=== PATIENT | female | born 1985 | race Two or more races ===

== ENCOUNTER → 2025-01-08 | Outpatient (CLI) | payer BC, SELFPAY ==
--- NOTE | 2025-01-08 07:30 | XR_ITS ---
Examination: Breast ultrasound complete, bilateral Date and time of exam: January 08, 2025 0737 hours INDICATIONS: Palpable lump outer right breast note is beginning several months ago Technique: Real-time grayscale ultrasonographic imaging bilateral breasts, including all 4 quadrants as well as nipple retroareolar and axillary regions. Findings: Sonographic images right breast Benign cysts, the largest in the 8:00 position 14 x 13 mm No solid nodules Sonographic images left breast Multiple benign cysts, the largest in the 4:00 position 15 x 16 mm No solid nodules IMPRESSION: BI-RADS Category 2: Benign findings
--- NOTE | 2025-01-08 08:45 | XR_ITS ---
Examination: Screening digital mammography, bilateral Computer aided detection 3-D breast Tomosynthesis, bilateral Date and time of exam: January 08, 2025 0803 hours COMPARISON: None Indication: Screening Technique: Nonmagnified MLO, CC views of the breasts to been obtained, reconstructed from 3-D Tomosynthesis images. R2 computer aided detection program utilized for evaluation of suspicious masses and/or abnormal calcifications. 3-D Tomosynthesis images obtained. Findings: The breasts are heterogeneously dense, which may obscure small masses Benign calcifications 10 mm round mass upper inner right breast, partially indistinct margins 8mm round mass nipple level left breast Impression: BI-RADS Category 0: Incomplete: Need additional imaging evaluation 10 mm round mass upper inner right breast, recommend follow-up spot tomographic views of this mass. 8mm round mass nipple level left breast, recommend follow-up spot tomographic views
== END | disposition home or self-care (01) ==
PROVIDERS: PCP Family Medicine; Referring Provider Specialist; Visit Provider Specialist
DX: Z12.31 Encounter for screening mammogram for malignant neoplasm of breast (principal); N63.12 Unspecified lump in the right breast, upper inner quadrant; N63.10 Unspecified lump in the right breast, unspecified quadrant
CPT/HCPCS: 76641; 77063; 77067

== ENCOUNTER → 2025-01-22 | Outpatient (CLI) | payer BC, SELFPAY ==
--- NOTE | 2025-01-22 | XR_ITS ---
Examination: Diagnostic digital mammography, bilateral Computer aided detection 3-D breast Tomosynthesis, bilateral Date and time of exam: 01/22/2025, 8:57 AM Comparisons: 01/08/2025 Indications:Further evaluation of bilateral abnormality seen on screening exam. Technique: Nonmagnified MLO, CC views of the breasts to been obtained, reconstructed from 3-D Tomosynthesis images. R2 computer aided detection program utilized for evaluation of suspicious masses and/or abnormal calcifications. 3-D Tomosynthesis images obtained. Findings: The breasts are heterogeneously dense, which may obscure small masses. Multiple benign-appearing oval circumscribed masses seen bilaterally. No evidence of suspicious masses or suspicious calcifications. Impression: BI-RADS category 2: Benign findings Recommend 1 year follow-up mammogram
== END | disposition home or self-care (01) ==
LOC: CDIM 08:42
PROVIDERS: PCP Family Medicine; Referring Provider Specialist; Visit Provider Specialist
DX: R92.323 Mammographic fibroglandular density, bilateral breasts (principal)
CPT/HCPCS: 77062; 77066; G0279

== ENCOUNTER 2025-03-26 16:40 | Emergency (ER) | payer OTHER, SELFPAY ==
[2025-03-26 16:41] VITALS: BMI 29.2
[2025-03-26 16:52] VITALS: BP 160/92; PULSE 106; RESP 18; TEMP 37.2; O2SAT 99
--- NOTE | 2025-03-26 17:15 | EDNOTE_ITS ---
Upper Extremity Injury RME/HPI General Chief Complaint: Extremity Injury, Upper Stated Complaint: SENT BY WORK TO GET MRI OF LEFT ELBOW Time Seen by Provider: 03/26/25 16:47 Arrival date/time: 03/26/25 16:40 This is a 39 spencer old female that comes to the emergency room with complaints of injury to left anterior Related Data Home Medications ?Medication ?Instructions ?Recorded ?Confirmed lorazepam 1 mg tablet 1 mg PO BID PRN Anxiety 09/2807/14/20 cetirizine 10 mg tablet (Allergy 10 mg PO QDAY 0 07/14/20 Relief (cetirizine)) estradiol-dienogest 3 mg/2 mg-2 1 tab PO QDAY 07/14/20 07/14/20 mg/2 mg-3 mg/1 mg tablet (N[place]zia) sodium chloride 0.65 % nasal spray 1 spray intranasal DAILY 07/14/20 07/14/20 aerosol (Nasal [place] (sodium chloride)) Previous Rx's ?Medication ?Instructions ?Recorded cyclobenzaprine 10 mg tablet 10 mg PO BID #20 tabs Allergies Allergy/AdvReac Type Severity Reaction Status Date / Time amoxicillin (From Augmentin) Allergy Verified 03/26/25 16:44 clavulanic acid (From Allergy Verified 03/26/25 16:44 Augmentin) levofloxacin (From Levaquin) Allergy Verified 03/26/25 16:44 Course Orders Category Date Time Status CYCLObenzaPRINE [Flexeril] Med 03/26/25 17:14 Discontinued 10 mg PO X1 ONE Ibuprofen Tab [Motrin Tab] Med 03/26/25 17:14 Discontinued 800 mg PO X1 ONE Vital Signs Vital signs: Vital Signs Temperature 98.9 F 03/26/25 16:52 Pulse Rate 106 H 03/26/25 16:52 Respiratory Rate 18 03/26/25 16:52 Blood Pressure 160/92 H 03/26/25 16:52 Pulse Oximetry (%) 99 03/26/25 16:52 Oxygen Delivery Method Room Air 03/26/25 16:52 Extremity Injury Medications / Prescriptions Medication administrations:: Medication Administration History Discontinued Medications Cyclobenzaprine HCl (Cyclobenzaprine 5 Mg Tablet) 10 mg PO X1 ONE Stop: 03/26/25 17:15 Last Admin: 03/26/25 18:09 Dose: 10 mg Documented By: RODRIGO Ibuprofen (Ibuprofen Tab 400 Mg Tablet) 800 mg PO X1 ONE Stop: 03/26/25 17:15 Last Admin: 03/26/25 18:09 Dose: 800 mg Documented By: RODRIGO Discharge Plan Plan Patient Disposition: HOME (Self Care) Patient condition on transfer: Stable Prescriptions/Referrals Prescriptions/Med Rec: New cyclobenzaprine 10 mg tablet 10 mg PO BID Qty: 20 0RF No Action lorazepam 1 mg Tablet 1 mg PO BID PRN (Reason: Anxiety) cetirizine [Allergy Relief (cetirizine)] 10 mg Tablet 10 mg PO QDAY sodium chloride [Nasal [place] (sodium chloride)] 0.65 % Aerosol,[place] 1 spray INTRANASAL DAILY [place]zia 3 mg/2 mg-2 mg/ 2 mg-3 mg/1 mg Tablet 1 tab PO QDAY Referrals: Eddie Shore DO [Primary Care Provider] - In 1 week Problem List Clinical Impression: Contusion of arm, left Patient/Caregiver Discharge Instructions Discharge Activity: activity as tolerated Education Materials: ED Contusion, Upper Extremity Additional Instructions: Please follow-up with Worker's Comp. doctor. Come back to the emergency room if symptoms change or worsen. Follow-up with primary provider 1 to 2 days. Print Language: British Stand Alone Forms: Shannon Award Info., Patient Portal Info Letter, Work/School Release PA/PRESIDENT ERGONOMIC CONSULTING Supervising Physician PA/PRESIDENT [employer]GONOMIC CONSULTING Supervising Physician: heladio
[2025-03-26] MEDS: CYCLObenzaPRINE 5 MG TABLET 10 MG PO (18:09)
[2025-03-26] MEDS: IBUPROFEN TAB 400 MG TABLET 800 MG PO (18:09)
== END 2025-03-26 19:33 | disposition home or self-care (01) ==
PROVIDERS: Emergency Provider Emergency Medicine; PCP Family Medicine
DX: S40.022A Contusion of left upper arm, initial encounter (principal); X58.XXXA Exposure to other specified factors, initial encounter
CPT/HCPCS: 99282; A9270

== ENCOUNTER → 2025-03-28 | Outpatient (CLI) | payer BC, SELFPAY | END | disposition home or self-care (01) | PROVIDERS: Referring Provider Specialist; Visit Provider Specialist | DX: B37.89 Other sites of candidiasis (principal); A59.01 Trichomonal vulvovaginitis; N76.0 Acute vaginitis | CPT/HCPCS: 81514 ==

== ENCOUNTER 2025-10-25 05:03 | Emergency (ER) | payer BC, SELFPAY ==
[2025-10-25] VITALS (7 sets, daily range): BP systolic 124–154; BP diastolic 81–101; PULSE 86–151; RESP 12–19; TEMP 36.9–37; O2SAT 97–100; BMI 30.6
--- NOTE | 2025-10-25 05:12 | EKG_ITS ---
[facility] Test Date: 2025-10-25 Pat Name: EZ OROURKE Department: Room: - Gender: Female [employer] Operator: : 1985 Requested By: ED Temporary Provider Order Number: [id number] Reading MD: ED Temporary Provider Measurements Intervals [place] Rate: 148 P: 50 ME: 123 QRS: 24 QRSD: 83 T: 38 QT: 296 QTc: 465 Interpretive Statements SINUS TACHYCARDIA, POSSIBLE ATRIAL FLUTTER MODERATE ST DEPRESSION [0.05+ mV ST DEPRESSION] No previous ECG available for comparison /[id number]/S0/[id number].pdf
--- NOTE | 2025-10-25 05:39 | PD.EDRME ---
Rapid Medical Screening Exam [facility] Arrival date/time: 10/25/25 05:03 40F with history of anxiety presents to ED with heart palps, dizziness, and N/V. Patient states also some L eye blurriness that patient has had for a while. It got worse in the last few days. Patient started metoprolol, buspirone, and vitamin D around the time these symptoms started. Chief Complaint: General Adult/Misc Complain Vital signs: Vital Signs Temperature 98.4 F 10/25/25 05:23 Pulse Rate 151 H 10/25/25 05:23 Respiratory Rate 19 10/25/25 05:23 Blood Pressure 152/93 H 10/25/25 05:23 Pulse Oximetry (%) 97 10/25/25 05:23 Oxygen Delivery Method Room Air 10/25/25 05:23 Exam: Mildly anxious. Normal pupil response and EOM. CN II-XII grossly intact. Neg pronator drift test. Speech normal. Normal WOB. Clear lungs. Fast HR. Clinical Impression: anxiety vs heart arrhythmia vs electrolyate abnormality vs thyroid dysfunction vs brain tumor vs psych/drug vs med side effect vs PE
--- NOTE | 2025-10-25 05:42 | XR_ITS ---
EXAMINATION: AP chest single view TECHNIQUE: AP portable upright chest single view Date and time: October 25, 2025, 0621 hours, comparison April 22, 2019 INDICATION: Shortness of breath cardiac palpitations beginning 12 hours ago. FINDINGS: Normal heart size Lungs are clear Osseous structures are intact IMPRESSION: No active disease
--- NOTE | 2025-10-25 05:43 | XR_ITS ---
Examination: CT brain head without contrast. 2-D sagittal coronal reconstructions Date and time of exam: October 25, 2025, 0613 hours INDICATIONS: Dizziness nausea blurred vision left eye beginning 5 hours ago CTDI: vol (mGy): 49.3 DLP: (mGycm): 923 Technique: Multiple CT axial sections of the brain have been obtained, 5 mm slice thickness. Contrast has not been administered. 2-D sagittal, coronal reconstructions have been obtained Low dose protocols were performed. One or more of the following dose reduction techniques were used; automated exposure control, adjustment of the mA and/or KV according to patient size, use of iterative reconstruction technique. Findings: No significant ventricular enlargement. Small low-density area in the brainstem axial image 29 which may be artifactual Intra-axial or extra-axial hemorrhage density is not seen. No mass effect or midline shift Basal cisterns are not remarkable. Fourth ventricle is midline. Cranial vault intact. Impression: Negative for acute hemorrhage, mass effect or midline shift Small low-density area in the brainstem axial image 29 which may be artifactual, clinical correlation advised Given the patient's presentation, recommend brain MRI MRA without contrast follow-up
[2025-10-25 05:57] LABS: Collection Type, Urine Clean Catch
[2025-10-25 06:05] LABS: HCG Qualitative,Urine Negative
[2025-10-25 06:06] LABS: Bacteria,Urine Rare; Bilirubin,Urine Negative (Negative); Blood,Urine 1+ (Negative); Clarity,Urine Clear (Clear/Hazy); Color,Urine Lt-Yellow (Lt Yel-Yel); Culture Indicated,Urine Not Indicated; Glucose, Urine Negative (Negative); Ketones,Urine 1+ (Negative); Leukocyte Esterase,Urine Negative (Negative); Nitrite,Urine Negative (Negative); PH,Urine 6.5 (5.0-7.0); Protein,Urine Negative (Neg - Trace); RBC,Urine 11 /hpf (0-3); Specific Gravity,Urine 1.017 (1.001-1.035); Squamous Epithelial Cell,Urine < 1 /hpf (0-5); Urobilinogen,Urine Negative mg/dL (0.0-1.0); WBC,Urine 1 /hpf (0-5)
[2025-10-25 06:12] LABS: Amphetamine/Methamp Scrn,U Negative (Negative); Barbiturate Screen,Urine Negative (Negative); Benzodiazepines Screen,Urine Positive (Negative); Benzoylecgonine Screen, Ur Negative (Negative); Fentanyl Screen,Urine Negative (Negative); Opiate Screen,Urine Negative (Negative); THC Screen,Urine Negative (Negative)
[2025-10-25] MEDS: SODIUM CHLORIDE 0.9% 1000 ML 1,000 ML 999 ML IV (06:50)
[2025-10-25] MEDS: DIAZEPAM INJ 5 MG/ML VIAL 2 ML 10 MG IVP (06:54)
[2025-10-25 07:36] LABS: Basophils # (Auto) 0.1 Thou/mm3 (0.0-0.2); Basophils % (Auto) 1 % (0-2.5); Eosinophils # (Auto) 0.0 Thou/mm3 (0.0-0.5); Eosinophils % (Auto) 0 % (0-10); Hematocrit 39.0 % (36.0-46.0); Hemoglobin 13.3 g/dL (12.0-16.0); Immature Granulocytes Auto 0.03 Thou/mm3 (0.00-0.00); Lymphocytes # (Auto) 1.3 Thou/mm3 (1.0-4.8); Lymphocytes % (Auto) 15 % (10-50); Mean Corpuscular HGB Conc 34.1 g/dl (31.0-37.0); Mean Corpuscular Hemoglobin 28.9 pg (25.0-35.0); Mean Corpuscular Volume 85 fL (80-100); Monocytes # (Auto) 0.4 Thou/mm3 (0.0-0.8); Monocytes % (Auto) 4 % (0-12); Neutrophils # (Auto) 7.4 Thou/mm3 (1.8-7.7); Neutrophils % (Auto) 80 % (37-80); Nucleated Red Blood Cell # 0.00 Thou/mm3 (0.00-0.00); Nucleated Red Blood Cell % 0 /100 WBC (0); Platelet Count 302 Thou/mm3 (140-440); RDW Standard Deviation 38.7 fL (36.4-46.3); Red Blood Count 4.60 Miln/mm3 (4.00-5.20); White Blood Count 9.2 Thou/mm3 (3.6-11.0)
--- NOTE | 2025-10-25 07:52 | PD.EDADULT ---
ED General RME/HPI General Chief complaint: General Adult/Misc Complain Stated complaint: PALPITATIONS NAUSEA DIZZY Time Seen by Provider: 10/25/25 05:50 Source: patient Arrival date/time: 10/25/25 05:03 Mode of arrival: ambulatory Limitations: no limitations RME / HPI complaint: Patient presented with sinus tachycardia associate with palpitation and fee Onset (ago): hour(s) RME / HPI narrative: 10/25/25 05:03 40F with history of anxiety presents to ED with heart palps, dizziness, and N/V. Patient states also some L eye blurriness that patient has had for a while. It got worse in the last few days. Patient started metoprolol, buspirone, and vitamin D around the time these symptoms started. DR. BANKS MAIN ED EVALUATION: 40 year old female with history of anxiety presents to the ED for evaluation of palpitations, dizziness, nausea, and vomiting beginning at approximately 6:30PM yesterday evening. Reportedly took Xanax which provided some relief. No other associated symptoms reported. Patient mentioned she began new medications which include Metropolol, Buspirone, and Vitamin D. She expressed concerns of the medications possibly exacerbating her symptoms. Exam: Mildly anxious. Normal pupil response and EOM. CN II-XII grossly intact. Neg pronator drift test. Speech normal. Normal WOB. Clear lungs. Fast HR. Impression: anxiety vs heart arrhythmia vs electrolyate abnormality vs thyroid dysfunction vs brain tumor vs psych/drug vs med side effect vs PE Related Data Home Medications ?Medication ?Instructions ?Recorded ?Confirmed lorazepam 1 mg tablet 1 mg PO BID PRN Anxiety 10/10/19 07/14/20 cetirizine 10 mg tablet (Allergy 10 mg PO QDAY 07/14/20 07/14/20 Relief (cetirizine)) estradiol-dienogest 3 mg/2 mg-2 1 tab PO QDAY 07/14/20 07/14/20 mg/2 mg-3 mg/1 mg tablet (N[place]zia) sodium chloride 0.65 % nasal spray 1 spray intranasal DAILY 07/14/20 07/14/20 aerosol (Nasal [place] (sodium chloride)) Previous Rx's ?Medication ?Instructions ?Recorded cyclobenzaprine 10 mg tablet 10 mg PO BID #20 tabs 04/29/25 clonidine HCl 0.1 mg tablet 0.1 mg PO Q8H #20 tabs 10/25/25 Allergies Allergy/AdvReac Type Severity Reaction Status Date / Time amoxicillin (From Augmentin) Allergy Verified 10/25/25 05:10 clavulanic acid (From Allergy Verified 10/25/25 05:10 Augmentin) levofloxacin (From Levaquin) Allergy Verified 10/25/25 05:10 Review of Systems Review of Systems Systems Reviewed: All systems reviewed, normal except as documented Past Medical History Past Medical History REPRODUCTIVE: Positive Previous Pregnancies PSYCHO/SOCIAL: Positive Depression and Anxiety OTHER HISTORY: Positive Autoimmune Disease and Chicken Pox Family History FAMILY HISTORY: Positive Family Psychiatric Problems, Family Cardiac Disorders, Family Gastrointestinal Problems and Family Surgery Surgical History SURGICAL: Positive Tonsillectomy Social History SMOKING STATUS: Never smoker Past Medical History Comments PMH COMMENT: Anxiety disorder PTSD Tachycardia ED Exam General Limitations: Present no limitations Eye Eye exam: Present normal appearance ENT ENT exam: Present normal exam Neck Neck exam: Present normal inspection Chest Chest inspection: Present normal inspection Respiratory Respiratory exam: Present normal lung sounds bilaterally Cardiovascular Cardiovascular exam: Present tachycardia and normal heart sounds Abdominal Exam Abdominal exam: Present soft Extremities Exam Extremities exam: Present normal inspection Back Exam Back exam: Present normal inspection Neurological Exam Neurological exam: Present alert, oriented X3 and CN II-XII intact Psychiatric Psychiatric exam: Present normal affect and anxious Skin Skin exam: Present warm Course Quality Measures none Orders Category Date Time Status Quality Liaison Q4H START 00 Care 10/25/25 05:44 Active EKG (ED ONLY) *Do not use* NOW Care 10/25/25 05:12 Completed Insert IV NOW Care 10/25/25 05:[address] head/brain wo con Stat Exams 10/25/25 05:43 Completed EKG (ED Only) Stat Exams 10/25/25 05:12 Draft XR chest 1V portable Stat Exams 10/25/25 05:42 Completed CBC Stat Lab 10/25/25 06:30 Completed Comprehensive Metabolic Panel Stat Lab 10/25/25 08:39 Completed D-Dimer Stat Lab 10/25/25 08:39 Completed Drug Screen,Urine Stat Lab 10/25/25 05:50 Completed Free T4 (Free Thyroxine) Stat Lab 10/25/25 08:39 Completed HCG Qualitative,Urine Stat Lab 10/25/25 05:50 Completed Magnesium Stat Lab 10/25/25 08:39 Completed TSH [Thyroid Stimulating Hormone] Stat Lab 10/25/25 08:39 Completed Troponin I Stat Lab 10/25/25 08:39 Completed Urinalysis, C/S if Indicated Stat Lab 10/25/25 05:50 Completed Diazepam Inj [Valium Inj] Med 10/25/25 05:42 Discontinued 10 mg IVP X1 ONE Sodium Chloride 0.9% 1000 ml [Ns] 1,000 ml Med 10/25/25 05:42 Discontinued IV 999 mls/hr cloNIDine HCL [Catapres] Med 10/25/25 07:52 Discontinued 0.1 mg PO X1 ONE Vital Signs Vital signs: Vital Signs Temperature 98.4 F 10/25/25 05:23 Pulse Rate 151 H 10/25/25 05:23 Respiratory Rate 19 10/25/25 05:23 Blood Pressure 152/93 H 10/25/25 05:23 Pulse Oximetry (%) 97 10/25/25 05:23 Oxygen Delivery Method Room Air 10/25/25 05:23 Pulse ox is 97% on room air which is adequate. Discharge Plan Plan Patient Disposition: HOME (Self Care) Prescriptions/Referrals Prescriptions/Med Rec: New clonidine HCl 0.1 mg tablet 0.1 mg PO Q8H Qty: 20 0RF No Action lorazepam 1 mg Tablet 1 mg PO BID PRN (Reason: Anxiety) cetirizine [Allergy Relief (cetirizine)] 10 mg Tablet 10 mg PO QDAY sodium chloride [Nasal [place] (sodium chloride)] 0.65 % Aerosol,[place] 1 spray INTRANASAL DAILY [place] 3 mg/2 mg-2 mg/ 2 mg-3 mg/1 mg Tablet 1 tab PO QDAY cyclobenzaprine 10 mg tablet 10 mg PO BID Qty: 20 0RF Referrals: Eddie Russo MD [Primary Care Provider] - In 1 week Problem List Clinical Impression: Regular sinus tachycardia, Anxiety Patient/Caregiver Discharge Instructions Discharge Activity: resume usual activities Education Materials: Anxiety Disorders Tx Therapy, ED Anxiety Reaction Print Language: Venezuelan Stand Alone Forms: Shannon Award Info., Patient Portal Info Letter MDM Narrative MDM hospital course (for use when minimal MDM required): Tiffani Artis, xochitl scribing for and in the presence of Dr. Banks. I reviewed todays labs, head CT and chest xray. The sinus tachycardia is most likley from benzodiazepines withdrawals. Plan: I advised the patient to continue the lower dose of Xanax (1mg) and add Clonidine. Also advised she continue lopressor. Patient is amenable to discharge. Strict return precautions were outlined. Clinical Information Provided by: patient Medical Records reviewed [facility] Meds/Rx considered, not ordered None Labs/Rad/Tests considered, not ordered None Chronic Illness/Social Conditions which may negatively complicate care or outcome(s)-explain: None or not applicable EKG Interpretation EKG #1: EKG Interpretation: EKG @ 06:21 AM, interpreted by me, sinus tachycardia, rate 148, no acute ST or Twave changes, no STEMI. Labs Labs: see narrative above Imaging Imaging interpretation: see narrative above Imaging Interpretation(s): Ordering Physician: Cb Seay PA-C Date of Service: 10/25/25 Procedure(s): XR chest 1V portable Accession Number(s): [id number] cc: Eddie Russo MD; William Rogers MD; Cb Seay PA-C~ EXAMINATION: AP chest single view TECHNIQUE: AP portable upright chest single view Date and time: October 25, 2025, 0621 hours, comparison April 22, 2019 INDICATION: Shortness of breath cardiac palpitations beginning 12 hours ago. FINDINGS: Normal heart size Lungs are clear Osseous structures are intact IMPRESSION: No active disease Dictated By: William Rogers MD Signed By: <Electronically signed by William Rogers MD in OV> 10/25/25 0727 Ordering Physician: Cb Seay PA-C Date of Service: 10/25/25 Procedure(s): CT head/brain wo con Accession Number(s): [id number] cc: Eddie Russo MD; William Rogers MD; Cb Seay PA-C~ Examination: CT brain head without contrast. 2-D sagittal coronal reconstructions Date and time of exam: October 25, 2025, 0613 hours INDICATIONS: Dizziness nausea blurred vision left eye beginning 5 hours ago CTDI: vol (mGy): 49.3 DLP: (mGycm): 923 Technique: Multiple CT axial sections of the brain have been obtained, 5 mm slice thickness. Contrast has not been administered. 2-D sagittal, coronal reconstructions have been obtained Low dose protocols were performed. One or more of the following dose reduction techniques were used; automated exposure control, adjustment of the mA and/or KV according to patient size, use of iterative reconstruction technique. Findings: No significant ventricular enlargement. Small low-density area in the brainstem axial image 29 which may be artifactual Intra-axial or extra-axial hemorrhage density is not seen. No mass effect or midline shift Basal cisterns are not remarkable. Fourth ventricle is midline. Cranial vault intact. Impression: Negative for acute hemorrhage, mass effect or midline shift Small low-density area in the brainstem axial image 29 which may be artifactual, clinical correlation advised Given the patient's presentation, recommend brain MRI MRA without contrast follow-up Dictated By: William Rogers MD Signed By: <Electronically signed by William Rogers MD in OV> 10/25/25 0730 Medication Administration(s) Medication Administration History Discontinued Medications Clonidine (Clonidine Hcl 0.1 Mg Tablet) 0.1 mg PO X1 ONE Stop: 10/25/25 07:53 Last Admin: 10/25/25 08:48 Dose: 0.1 mg Documented By: EF Diazepam (Diazepam Inj 5 Mg/Ml Vial 2 Ml) 10 mg IVP X1 ONE Stop: 10/25/25 05:43 Last Admin: 10/25/25 06:54 Dose: 10 mg Documented By: AC Sodium Chloride (Ns) 1,000 mls @ 999 mls/hr IV .Q1H1M ONE Stop: 10/25/25 06:42 Last Infusion: 10/25/25 08:00 Dose: Infused Documented By: Admin: 10/25/25 06:50 Dose: 999 mls/hr Documented By: AC See above Diagnosis Diagnoses ruled out and/or further discussions: Regular sinus tachycardia Anxiety
[2025-10-25 09:14] LABS: Alanine Aminotransferase 17 U/L (10-49); Albumin, Serum 4.5 gm/dL (3.5-5.0); Albumin/Globulin Ratio 1.7 (1.2-2.2); Alkaline Phosphatase 75 U/L (46-116); Anion Gap 9 (7-16); Aspartate Amino Transferase 15 U/L (0-34); BUN/Creatinine Ratio 7 Ratio (12-20); Bilirubin,Total 0.4 mg/dL (0.3-1.2); Blood Urea Nitrogen < 5 mg/dL (9-23); Calcium 8.7 mg/dL (8.3-10.6); Calcium (Corrected) 8.7 mg/dL (8.5-10.1); Carbon Dioxide 23.4 mMol/L (20.0-31.0); Chloride 112 mMol/L (98-107); Creatinine (Component) 0.7 mg/dL (0.6-1.3); Estimated Creatinine Clearance 114.0 mL/min (>60); Free T4 (Free Thyroxine) 1.15 ng/dL (0.89-1.76); Globulin 2.7 gm/dL (2.3-3.5); Glucose 118 mg/dL (74-106); Magnesium 1.8 mg/dL (1.6-2.6); Osmolality,Calculated 285 (275-295); Potassium 3.9 mMol/L (3.4-5.1); Sodium 144 mMol/L (136-145); Thyroid Stimulating Hormone 1.16 uIU/mL (0.55-4.78); Total Protein 7.2 gm/dL (5.7-8.2); Troponin I < 0.002 ng/mL (0.0-0.045); eGFR > 60 See Note
[2025-10-25 09:42] LABS: D-Dimer < 250 ng/mL (<600)
== END 2025-10-25 10:12 | disposition home or self-care (01) ==
PROVIDERS: Physician Assistant; Emergency Provider Emergency Medicine; PCP Family Medicine
DX: F41.9 Anxiety disorder, unspecified (principal); R00.0 Tachycardia, unspecified; R06.02 Shortness of breath; R42 Dizziness and giddiness; R11.2 Nausea with vomiting, unspecified; H53.8 Other visual disturbances; R90.89 Other abnormal findings on diagnostic imaging of central nervous system
CPT/HCPCS: 36415; 70450; 71045; 80053; 80307; 81001; 81025; 83735; 84439; 84443; 84484; 85025; 85379; 93005; 96365; 96375; 99285; J3360; J7030; A9270